=== PATIENT | female | born 1980 | race Caucasian/White ===

== ENCOUNTER → 2022-12-03 15:10 | Outpatient (REF) | payer OTHER, SELFPAY | LOC: CLAB 15:10 | PROVIDERS: ATTENDING PHYSICIAN Urology | DX: N32.9 Bladder disorder, unspecified (principal) | CPT/HCPCS: 88305 ==

== ENCOUNTER → 2023-07-01 08:55 | Outpatient (REF) | payer OTHER, SELFPAY | LOC: HWWDC 08:55 | PROVIDERS: ATTENDING PHYSICIAN Obstetrics & Gynecology; FAMILY PHYSICIAN Nurse Practitioner Adult Health | DX: Z12.31 Encounter for screening mammogram for malignant neoplasm of breast (principal) | CPT/HCPCS: 77063; 77067 ==